=== PATIENT | male | born 1995 | race Caucasian/White ===

== ENCOUNTER 2017-06-07 06:33 | Emergency (ER) | payer MEDICAID ==
[~2017-06-07] VITALS: Ht 177.8 cm; Wt 80.0 kg
[2017-06-07 06:34] VITALS: BP 123/77; PULSE 91; RESP 16; TEMP 96.7; O2SAT 97
[2017-06-07] MEDS ORDERED: ACETAMINOPHEN 325 MG TAB PO ONE (07:15)
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
== END 2017-06-07 08:31 | disposition home or self-care (01) ==
LOC: NEPC 06:33
DX: M79.641 Pain in right hand (principal); R51 Headache; Y04.0XXA Assault by unarmed brawl or fight, initial encounter
CPT/HCPCS: 99283